=== PATIENT | male | born 1940 | race Two or more races ===

== ENCOUNTER → 2024-11-30 14:37 | Outpatient (REF) | payer MEDICARE, SELFPAY | LOC: RCS 14:37 | PROVIDERS: ATTENDING PHYSICIAN Internal Medicine Cardiovascular Disease | DX: R93.1 Abnormal findings on diagnostic imaging of heart and coronary circulation (principal) | CPT/HCPCS: 93306 ==

== ENCOUNTER → 2024-12-17 08:09 | Outpatient (REF) | payer MEDICARE, SELFPAY | LOC: HWRCS 08:09 | PROVIDERS: ATTENDING PHYSICIAN Internal Medicine Cardiovascular Disease; FAMILY PHYSICIAN Internal Medicine | DX: R07.89 Other chest pain (principal); R93.1 Abnormal findings on diagnostic imaging of heart and coronary circulation | CPT/HCPCS: 78452; 93017; A9500; J2785 ==